=== PATIENT | female | born 1990 | race American Indian/Alaskan Native ===

== ENCOUNTER 2022-03-23 13:25 | Emergency (ER) | payer MEDICAID, OTHER ==
[2022-03-23 14:40] VITALS: BP 129/72
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
== END 2022-03-23 15:15 | disposition home or self-care (01) ==
LOC: ED 13:25
DX: M54.50 Low back pain, unspecified (principal); R07.89 Other chest pain; M54.2 Cervicalgia; I10 Essential (primary) hypertension; F17.200 Nicotine dependence, unspecified, uncomplicated; V87.7XXA Person injured in collision between other specified motor vehicles (traffic), initial encounter; Y93.89 Activity, other specified; Y92.488 Other paved roadways as the place of occurrence of the external cause; Y99.8 Other external cause status
CPT/HCPCS: 99282